=== PATIENT | male | born 1975 | race African-American/Black ===

== ENCOUNTER → 2019-10-12 | Outpatient (CLI) | payer OTHER ==
--- NOTE | 2019-10-12 12:54 | RAD ---
EXAM: Chest, 2 views. HISTORY: Chest pain. COMPARISON: None. FINDINGS: 2 views of the chest are obtained. There is no infiltrate, pleural effusion or pneumothorax. The heart is normal in size. IMPRESSION: No acute pulmonary finding. Electronically signed by: Diandra Castillo MD (10/12/2019 12:51 PM) [facility] – [place]
== END | disposition home or self-care (01) ==
LOC: DXRAD 11:50
PROVIDERS: ATTEND Nurse Practitioner Adult Health
DX: J20.8 Acute bronchitis due to other specified organisms (principal)
CPT/HCPCS: 71046